=== PATIENT | female | born 1975 ===

== ENCOUNTER 2017-09-24 18:47 | Emergency (ER) | payer MEDICAID ==
[2017-09-24] MEDS ORDERED: Sodium Chloride 0.9% 1,000 ML IV STA (20:59)
--- NOTE | 2017-09-24 21:25 | ED PDOC ---
HPI: Abdomen Time Seen by Provider: 09/24/17 20:42 Chief Complaint (Nursing): Abdominal Pain History Per: Patient History/Exam Limitations: no limitations Onset/Duration Of Symptoms: Days Outside of [place] travel?: No Current Symptoms Are (Timing): Still Present Context: Food Location Of Pain/Discomfort: RUQ, Epigastric Associated Symptoms: Nausea, Vomiting Additional Complaint(s): No PMHx presenting with abdominal pain and vomiting, states that she had gallbladder problems one year ago but went away spontaneously, states for the past week she has had increasingly worsening abdominal pain, especially with acidic and greasy foods, states that she feels as though her abdomen gets distended when she eats these foods, states that she vomited twice today, non- bloody, non-biliuos, with normal stools. No urinary symptoms, no vaginal bleeding or discharge. No fevers, chills. Was seen at [facility] and was told to come to the ER for further evaluation. Past Medical History Reviewed: Historical Data, Nursing Documentation, Vital Signs Vital Signs: Last Vital Signs Temp 98.1 F 09/24/17 19:11 Pulse 94 H 09/24/17 19:11 Resp 18 09/24/17 19:11 BP 141/85 09/24/17 19:11 Pulse Ox 100 09/24/17 21:28 - Medical History PMH: No Chronic Diseases - Family History Family History: States: No Known Family Hx - Home Medications Home Medications: Ambulatory Orders Medication Instructions Recorded Famotidine [Pepcid] 20 mg PO BID #20 tab 09/24/17 Omeprazole 20 mg PO DAILY #30 linus. 09/24/17 - Allergies Allergies/Adverse Reactions: Allergies Allergy/AdvReac Type Severity Reaction Status Date / Time metoclopramide Allergy SHORTNESS Verified 09/24/17 19:10 OF BREATH diphenhydramine AdvReac DIZZINESS Verified 09/24/17 19:10 [From Benadryl] spasmoforte Allergy DIZZINESS Uncoded 09/24/17 19:11 Review of Systems ROS Statement: Except As Marked, All Systems Reviewed And Found Negative Gastrointestinal: Positive for: Nausea, Vomiting, Abdominal Pain Physical Exam - Reviewed Nursing Documentation Reviewed: Yes Vital Signs Reviewed: Yes - Physical Exam Appears: Positive for: Well, Non-toxic, No Acute Distress Head Exam: Positive for: ATRAUMATIC, NORMAL INSPECTION, NORMOCEPHALIC Skin: Positive for: Normal Color, Warm, DRY Eye Exam: Positive for: EOMI, Normal appearance, PERRL ENT: Positive for: Normal ENT Inspection Neck: Positive for: Normal, Painless ROM Cardiovascular/Chest: Positive for: Regular Rate, Rhythm Respiratory: Positive for: CNT, Normal Breath Sounds Gastrointestinal/Abdominal: Positive for: Normal Exam, Bowel Sounds, Soft, Tenderness (RUQ/Epigastric tednerness). Negative for: Organomegaly, Mass, Distended, Guarding, Rebound Back: Positive for: Normal Inspection Extremity: Positive for: Normal ROM Neurologic/Psych: Positive for: Alert, Oriented - Laboratory Results Result Diagrams: 09/24/17 21:32 09/24/17 19:32 - ECG O2 Sat by Pulse Oximetry: 100 Pulse Ox Interpretation: Normal Medical Decision Making Medical Decision MakinPM Patient presenting with abdominal pain, vomiting -patient well appearing with stable vitals -ddx: gall stones v. cholecystitis v. gastritis v. PUD v. pancreatitis -will provide PPI, fluids, anti-nause, check labs, and re-eval 1130PM EXAM: US Abdomen Limited, Right Upper Quadrant EXAM DATE/TIME: 09/24/2017 8:59 PM CLINICAL HISTORY: CLINICAL 41 years old, female; Pain; Abdominal pain; Epigastric; Additional info : Ruq pain TECHNIQUE: Real-time ultrasound of the abdomen with image documentation. COMPARISON: No relevant prior studies available. FINDINGS: Liver: Normal. No masses. Gallbladder: Normal. No gallstones. There is not gallbladder wall thickening. Common bile duct: Normal. No stones. No dilation. Pancreas: Visualized pancreas is unremarkable. Right kidney: Normal. No mass. No hydronephrosis. IMPRESSION: No acute findings --Patient states she's feeling a lot better. Advised diet modification, PPI and pepcid PRN. Advised her to followup with PMD, patient cannot remember the name. Patient well appearing, tolerating PO, normal vitals upon discharge. Disposition - Clinical Impression Clinical Impression: Gastritis - Disposition Referrals: [facility] [Outside] [facility] [Outside] Disposition: Routine/Home Disposition Time: 23:48 Condition: IMPROVED Prescriptions: Famotidine [Pepcid] 20 mg PO BID #20 tab Omeprazole 20 mg PO DAILY #30 capsule. Instructions: Gastritis Forms: [facility] (Swedish) Print Language: CITIZEN OF [place]
[2017-09-24 21:52] LABS: BASO % 0.4 % (0.0-2.0); EOS % 0.4 % (0.0-4.0); LYMPH # 2.1 K/uL (1.0-4.3); LYMPH % 21.6 % (20.0-40.0); MEAN CORPUSCULAR HEMOGLOBIN 29.1 pg (27.0-31.0); MEAN CORPUSCULAR HGB CONC 33.5 g/dL (33.0-37.0); MEAN PLATELET VOLUME 8.5 fl (7.2-11.7); MONO # 0.8 K/uL (0.0-0.8); MONO % 8.4 % (0.0-10.0); NEUT # 6.8 K/uL (1.8-7.0); NEUT % 69.2 % (50.0-75.0); RBC 4.11 Mil/uL (3.80-5.20); WHITE BLOOD COUNT 9.9 K/uL (4.8-10.8)
[2017-09-24 22:12] LABS: ALB/GLOB RATIO 1.3 (1.0-2.1); ALBUMIN 4.2 g/dL (3.5-5.0); ALT/SGPT 29 U/L (9-52); AST/SGOT 24 U/L (14-36); BILIRUBIN,DIRECT 0.2 mg/ml (0.0-0.4); BLOOD UREA NITROGEN 16 mg/dl (7-17); CALCIUM 8.7 mg/dL (8.4-10.2); GFR AFRICAN-AMERICAN > 60; GFR NON-AFRICAN AMERICAN > 60; LIPASE 84 U/L (23-300)
[2017-09-24 23:24] LABS: SQUAMOUS EPITHIAL 1 /hpf (0-5); URINE BACTERIA FEW (<OCC); URINE BILIRUBIN NEGATIVE (NEGATIVE); URINE BLOOD SMALL (NEGATIVE); URINE CLARITY SLIGHTY-CLOUDY (Clear); URINE COLOR YELLOW (YELLOW); URINE GLUCOSE (UA) NEG (Normal); URINE LEUKOCYTE ESTERASE NEG Leu/uL (Negative); URINE PROTEIN NEGATIVE (NEGATIVE); URINE UROBILINOGEN 0.2-1.0 mg/dL (0.2-1.0)
[2017-09-25 00:31] VITALS: BP 132/82; PULSE 70; RESP 16; TEMP 98.4; O2SAT 98
--- NOTE | 2017-09-25 09:20 | US ---
Date of service: 09/24/2017 HISTORY: RUQ pain COMPARISON: None. TECHNIQUE: Sonographic evaluation of the right upper quadrant of the abdomen. FINDINGS: LIVER: Measures 13.8 cm in length. Normal echogenicity of the liver parenchyma. No mass. No intrahepatic bile duct dilatation. GALLBLADDER: There are no gallstones, wall thickening or pericholecystic fluid. The sonographic Madrigal's sign is negative. COMMON BILE DUCT: Measures 4.0 mm. No stones. No dilatation. PANCREAS: The pancreas is slightly prominent an echogenic most compatible with fatty replacement. No mass. No ductal dilatation. RIGHT KIDNEY: Measures 10.0 cm in length. Normal echogenicity. No calculus, mass, or hydronephrosis. AORTA: No aneurysmal dilatation. IVC: Unremarkable. OTHER FINDINGS: None . IMPRESSION: No acute findings. A preliminary report was provided by [employer] [facility].
== END 2017-09-25 01:00 | disposition home or self-care (01) ==
LOC: H.ER 18:47
DX: K29.70 Gastritis, unspecified, without bleeding (principal)
CPT/HCPCS: 76705; 80053; 81003; 81025; 82248; 83690; 85025; 96361; 96374; 96375; 99281; J7030